=== PATIENT | female | born 1975 | race Two or more races ===

== ENCOUNTER 2024-08-02 22:01 | Emergency (ER) | payer OTHER ==
[~2024-08-02] VITALS: Ht 162.6 cm; Wt 70.3 kg
[2024-08-02] MEDS ORDERED: predniSONE 20 MG TABLET ONE (22:29)
[2024-08-02] MEDS: ALBUTEROL FS 2.5 MG/3 ML VIAL.NEB CONTNEB ONE (22:29)
[2024-08-02] MEDS: IPRATROPIUM NEB FS 0.5 MG/2.5 ML AMPUL.NEB NEB ONE (22:29)
[2024-08-02] MEDS: predniSONE 50 MG TABLET PO ONE (22:31)
[2024-08-02] MEDS ORDERED: ALBUTEROL FS 2.5 MG/3 ML VIAL.NEB ONE (22:34)
[2024-08-02] MEDS ORDERED: IPRATROPIUM NEB FS 0.5 MG/2.5 ML AMPUL.NEB ONE (22:34)
[2024-08-02 22:41] VITALS: O2SAT 93
[2024-08-02 23:41] VITALS: O2SAT 98
[2024-08-02] MEDS ORDERED: PRED50TA PO (23:44)
[2024-08-02 23:55] VITALS: BP 137/82; TEMP 99.1; O2SAT 95
== END 2024-08-02 23:56 | disposition home or self-care (01) ==
LOC: ER 22:03
DX: R05.9 Cough, unspecified (principal); J45.909 Unspecified asthma, uncomplicated; Z88.5 Allergy status to narcotic agent
CPT/HCPCS: 99285; 71045; 94644; J7512

== ENCOUNTER 2025-05-25 20:37 | Emergency (ER) | payer OTHER ==
[~2025-05-25] VITALS: Ht 162.6 cm; Wt 90.7 kg
[~2025-05-25 20:37] MED LIST: PRED50TA PO
[2025-05-25 22:56] LABS: APPEARANCE,URINE CLEAR (CLEAR); BLOOD, URINE 3+ Ery/uL (NEGATIVE); LEUKOCYTE ESTERASE ,URINE NEGATIVE (NEGATIVE); NITRITE, URINE NEGATIVE (NEGATIVE); UGLUCOSE NEGATIVE (NEGATIVE)
[2025-05-25 22:58] LABS: PREGNANCY TEST URINE QUAL NEGATIVE (NEGATIVE)
[2025-05-25 23:04] LABS: PLATELET COUNT (AUTO) 289 K/uL (150-450); RED BLOOD CELL COUNT(AUTO) 4.78 MIL/uL (4.0-5.2); RED CELL DISTRIBUTION WIDTH 15.1 % (11.5-15.0); WHITE BLOOD COUNT (AUTO) 9.4 K/uL (4.3-11.0)
[2025-05-25 23:09] LABS: ADD URINE CULTURE NO
[2025-05-25 23:10] LABS: CALCIUM, SERUM 8.5 mg/dL (8.5-10.1); CREATININE 0.9 mg/dL (0.6-1.3); SODIUM SERUM 141.0 mmol/L (136-145); UREA NITROGEN, BLOOD 20.0 mg/dL (7-18)
[2025-05-25 23:16] LABS: ASPARTATE AMINOTRANSFERASE 9.0 U/L (15-37); TOTAL PROTEIN, SERUM 6.6 g/dL (6.4-8.2)
[2025-05-25 23:18] LABS: INR 0.95 (0.91-1.10)
[2025-05-26] MEDS ORDERED: ACETAMINOPHEN ES 500 MG TABLET ONE (00:12)
[2025-05-26] MEDS: ACETAMINOPHEN ES 500 MG TABLET PO ONE (00:15)
[2025-05-26 00:48] VITALS: BP 133/72; TEMP 98.7; O2SAT 97
== END 2025-05-26 00:49 | disposition home or self-care (01) ==
LOC: ER 20:53
DX: N83.9 Noninflammatory disorder of ovary, fallopian tube and broad ligament, unspecified (principal); N93.9 Abnormal uterine and vaginal bleeding, unspecified; J45.909 Unspecified asthma, uncomplicated; Z79.52 Long term (current) use of systemic steroids; Z88.0 Allergy status to penicillin; Z88.5 Allergy status to narcotic agent
CPT/HCPCS: 36415; 76856-TC; 80048-TC; 80076-TC; 81001; 84703-TC; 85025-TC; 85730-TC